=== PATIENT | female | born 1975 | race Caucasian/White ===

== ENCOUNTER 2019-01-22 05:34 | Inpatient (IN) ==
[2019-01-22] MEDS ORDERED: ceFAZolin Inj 2gm (Premix) 2 GM/50 ML BAG IV ONE ×2 (05:58→06:00)
[2019-01-22] MEDS ORDERED: Lactated Ringers 1,000 ML PRIMARY IV ONE ×2 (05:58→06:00)
[2019-01-22] MEDS ORDERED: LIDOCAINE W/ SODIUM BICARB 0.5 ML SYR ONE (05:58)
[2019-01-22 05:59] LABS: BILIRUBIN,URINE NEGATIVE (NEG); CLARITY,URINE CLEAR (CLEAR); COLOR,URINE YELLOW (Y); GLUCOSE, URINE (UA) NEGATIVE (NEG); OCCULT BLOOD,URINE SMALL (NEG); PROTEIN,URINE NEGATIVE (NEG); UROBILINOGEN,URINE 0.2 EU/dL (0.2)
[2019-01-22] MEDS ORDERED: Sodium Chloride 0.9% 250 ML ONE (06:00)
[2019-01-22] MEDS ORDERED: LIDOCAINE W/ SODIUM BICARB 0.5 ML SYR SUBD ONE (06:00)
[2019-01-22] MEDS ORDERED: Nasal Sanitizer POPSWAB ampule 3 AMP (Nozin) PREOP DOSE ENOS SCH (06:00)
[2019-01-22] MEDS ORDERED: Vancomycin Inj 1.25gm vial IV ONE (06:00)
[2019-01-22] MEDS ORDERED: Vancomycin-PHA to Dose IV PRN ×2 (06:00→14:13)
[2019-01-22 06:04] LABS: SQUAMOUS EPITHELIAL CELL,UR FEW; URINE CRYSTALS FEW; URINE SAMPLE TYPE CLEAN CATCH URINE
[2019-01-22] MEDS ORDERED: Sodium Chloride 0.9% vial 20 ML ONE (06:45)
[2019-01-22] MEDS ORDERED: BACITRACIN 50,000 UNIT VIAL IRRIG ONE (06:45)
[2019-01-22] MEDS ORDERED: BUPIVACAINE 0.25% W/ EPI - 10 ML VIAL ONE (06:45)
[2019-01-22] MEDS ORDERED: PROPOFOL 10 MG/1 ML (200 MG/20 ML) VIAL IV ONE (07:30)
[2019-01-22] MEDS ORDERED: HYDROmorphone 2 MG/1 ML ONE ×4 (07:30→13:59)
[2019-01-22] MEDS ORDERED: Sodium Chloride 0.9% vial 10 ML ONE (07:33)
[2019-01-22] MEDS ORDERED: ROCURONIUM 10 MG/1 ML - 5 ML VIAL IVP ONE (07:35)
[2019-01-22] MEDS ORDERED: SUCCINYLCHOLINE CHLORIDE 20 MG/1 ML - 10 ML ONE (07:36)
[2019-01-22] MEDS ORDERED: KETAMINE 100 MG/1 ML - 5 ML ONE (07:36)
[2019-01-22] MEDS ORDERED: DEXAMETHASONE PF 10 MG/1 ML VIAL ONE (07:38)
[2019-01-22 07:41] LABS: URINE SPECIFIC GRAVITY - MAN 1.021
[2019-01-22] MEDS ORDERED: LIDOCAINE HCL 2 % 10 ML JELLY URO-JECT TOPICAL ONE (07:50)
[2019-01-22] MEDS ORDERED: LIDOCAINE HCL 2 % 10 ML JELLY URO-JECT TOPICAL PRN (08:46)
[2019-01-22] MEDS ORDERED: LIDOCAINE W/ SODIUM BICARB 0.5 ML SYR SUBD PRN (12:28)
[2019-01-22] MEDS ORDERED: ONDANSETRON 4 MG/2 ML VIAL IVP PRN (12:28)
[2019-01-22] MEDS ORDERED: Prochlorperazine Edisylate Inj 10mg/2ml vial IVP PRN ×2 (12:28→14:13)
[2019-01-22] MEDS ORDERED: DIAZEPAM 10 MG/2 ML (5 MG/1 ML) CARPUJECT IVP SCH (12:40)
[2019-01-22] MEDS ORDERED: DIAZEPAM 10 MG/2 ML (5 MG/1 ML) CARPUJECT ONE (12:41)
[2019-01-22] MEDS: DIAZEPAM 10 MG/2 ML (5 MG/1 ML) CARPUJECT IVP PRN ×2 (12:42→13:13)
[2019-01-22] MEDS: HYDROmorphone 2 MG/1 ML IVP PRN ×4 (12:59→13:59)
[2019-01-22] MEDS ORDERED: MAGNESIUM 400 MG/5 ML - 30 ML (MILK OF MAGNESIA) PO PRN (14:13)
[2019-01-22] MEDS ORDERED: MORPHINE SULFATE 2 MG/1 ML IVP PRN (14:13)
[2019-01-22] MEDS ORDERED: MAGNESIUM CITRATE 296 ML SOLUTION PO PRN (14:13)
[2019-01-22] MEDS ORDERED: DOCUSATE 100 MG CAPSULE PO PRN (14:13)
[2019-01-22] MEDS ORDERED: BISACODYL 5 MG TABLET PO PRN (14:13)
[2019-01-22] MEDS ORDERED: oxyCODONE-ACETAMINOPHEN 5-325 TAB PO PRN (14:13)
[2019-01-22] MEDS ORDERED: oxyCODONE/APAP 10/325 Tab 1 EACH TAB PO PRN (14:13)
[2019-01-22] MEDS ORDERED: Fleet Enema 133ml RECTAL PRN (14:13)
[2019-01-22] MEDS ORDERED: DIAZEPAM 5 MG TABLET PO PRN (14:13)
[2019-01-22] MEDS ORDERED: PROMETHAZINE 25 MG/1 ML VIAL IM PRN (14:13)
[2019-01-22] MEDS ORDERED: BACLOFEN 20 MG TABLET PO PRN (14:45)
[2019-01-22] MEDS: Ondansetron ODT Tab 4 MG TAB PO PRN (15:56)
[2019-01-22] MEDS ORDERED: Influenza 19-20 Vaccine (6mo+) 60 MCG/0.5 ML SYRINGE IM ONE (16:18)
[2019-01-22] MEDS: GABAPENTIN 400 MG CAPSULE PO SCH ×2 (17:26→21:34)
[2019-01-22] MEDS: ceFAZolin Inj 2gm (Premix) 2 GM/50 ML BAG IV SCH ×2 (17:27→23:59)
[2019-01-22] MEDS: DIAZEPAM 5 MG TABLET PO PRN (20:09)
[2019-01-22] MEDS: VERAPAMIL 80 MG PO SCH (21:34)
[2019-01-23] MEDS: oxyCODONE/APAP 7.5/325 Tab 1 TAB TAB PO PRN ×2 (05:08→09:08)
[2019-01-23] MEDS: DIAZEPAM 5 MG TABLET PO PRN (05:08)
[2019-01-23] MEDS ORDERED: LEVOTHYROXINE 50 MCG TABLET PO SCH (05:30)
[2019-01-23 05:33] LABS: BASOPHILS # (AUTO) 0.02 10*3/UL; BASOPHILS % (AUTO) 0.1 % (0-1); EOSINOPHILS # (AUTO) 0 10*3/UL; EOSINOPHILS % (AUTO) 0 % (0-8); Hematocrit [HCT] 34.4 % (37.0-47.0); Hemoglobin [HGB] 10.6 g/dL (12.0-16.0); MEAN CORPUSCULAR HGB CONC 30.8 g/dL (33-37); MEAN CORPUSCULAR VOLUME 86.9 FL (81-99); MEAN PLATELET VOLUME 10.6 FL (7.4-12.2); MONOCYTES # (AUTO) 1.18 10*3/UL (0.3-0.8); MONOCYTES % (AUTO) 7.2 % (5-15); NEUTROPHILS # (AUTO) 14.27 10*3/UL; NEUTROPHILS % (AUTO) 87.6 % (50-80); RED BLOOD COUNT 3.96 10^6/uL (4.20-5.40)
[2019-01-23 05:48] LABS: BLOOD UREA NITROGEN 8 mg/dL (7-22); BUN/CREATININE RATIO 13.33 (6-20)
[2019-01-23 05:49] LABS: PLATELET MORPHOLOGY COMMENT NORMAL MORPHOLOGY (NORM); RBC MORPHOLOGY COMMENT NORMAL MORPHOLOGY (NORM); WBC MORPHOLOGY COMMENT NORMAL MORPHOLOGY (NORM)
[2019-01-23 06:50] VITALS: BP 138/77; RESP 16; TEMP 98.7; O2SAT 94
[2019-01-23] MEDS ORDERED: Influenza 19-20 Vaccine (6mo+) 60 MCG/0.5 ML SYRINGE IM ONE (07:02)
[2019-01-23] MEDS: ceFAZolin Inj 2gm (Premix) 2 GM/50 ML BAG IV SCH (07:04)
[2019-01-23] MEDS: Ondansetron ODT Tab 4 MG TAB PO PRN (07:10)
[2019-01-23] MEDS ORDERED: Methocarbamol Tab 500 MG TAB PO SCH (09:00)
[2019-01-23] MEDS: GABAPENTIN 400 MG CAPSULE PO SCH (09:07)
[2019-01-23] MEDS: VERAPAMIL 80 MG PO SCH (09:07)
== END 2019-01-23 09:50 | disposition home or self-care (01) | DRG 455 ==
LOC: OPS 05:34 → MED/SURG 14:00
PROVIDERS: ADMIT Neurological Surgery; ATTEND Neurological Surgery